=== PATIENT | female | born 2000 | race Hispanic/Latino ===

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

== ENCOUNTER 2021-05-12 20:41 | Emergency (ER) | payer OTHER ==
[2021-05-12] MEDS ORDERED: HYDROcodone/Acetaminophen 5/325 mg Tablet ONE (23:29)
[2021-05-12] MEDS ORDERED: Ciprofloxacin HCL/Dexameth Otic Drops 7.5 ml Bottle ONE (23:42)
[2021-05-12] MEDS ORDERED: Ciprofloxacin 0.2% Otic (0.25ML CONTAINER) R EAR SCH (23:45)
== END 2021-05-13 00:03 | disposition home or self-care (01) ==
LOC: ERS 20:41
DX: H60.91 Unspecified otitis externa, right ear (principal)
CPT/HCPCS: 99282

== ENCOUNTER 2024-09-18 17:48 | Emergency (ER) | payer OTHER, SELFPAY ==
[2024-09-18 18:42] LABS: Bacteria/HPF None Seen HPF (None Seen); Bilirubin Negative (Negative); Blood, Urine Negative (Negative); CAUTI Indications for Culture < 2yrs of age; Clarity Clear (Clear); Glucose, Urine (Dipstick) Normal (Negative); Ketone, Urine Negative (Negative); Leukocyte Negative Leu/uL (Negative); Nitrite Negative (Negative); Protein, Urine (Dipstick) Negative (Neg-Trace); RBC/HPF 0-3 HPF (0-3); Specific Gravity, Urine 1.015 (1.002-1.036); Squamous Epithelial 0-3 HPF (0-3); Urobilinogen Normal mg/dL (Less than 2); WBC/HPF 0-3 HPF (0-3); pH, Urine 6.5 (5.0-9.0)
[2024-09-18 18:46] LABS: Pregnancy Test - Urine (BHCG) Negative (Negative); Pregu Control Background? CLEAR/WHITE (CLR/WHITE); Pregu Control Bar Appear? YES (CONTROL BAR); Specific Gravity 1.015 (1.002-1.036); Urine Culture Reflex No No; Urine Culture Reflex Yes Yes
[2024-09-18] MEDS ORDERED: Cyclobenzaprine 10 MG TAB ONE (19:02)
[2024-09-18] MEDS ORDERED: Ketorolac Tromethamine 30 MG (1 mL) VIAL ONE (19:02)
== END 2024-09-18 19:17 | disposition home or self-care (01) ==
LOC: ERS 17:48
DX: M54.50 Low back pain, unspecified (principal); X50.0XXA Overexertion from strenuous movement or load, initial encounter
CPT/HCPCS: 81001; 81025; 87086; 96372; 99283; J1885

== ENCOUNTER 2025-05-05 15:49 | Emergency (ER) | payer SELFPAY ==
[2025-05-05] MEDS ORDERED: Ketorolac Tromethamine 30 MG (1 mL) VIAL ONE (16:32)
== END 2025-05-05 16:49 | disposition home or self-care (01) ==
LOC: ERS 15:49
DX: M54.50 Low back pain, unspecified (principal); X50.1XXA Overexertion from prolonged static or awkward postures, initial encounter
CPT/HCPCS: 96372; 99282; J1885

== ENCOUNTER 2025-06-03 19:57 | Emergency (ER) | payer SELFPAY | END 2025-06-03 20:47 | disposition home or self-care (01) | LOC: ERS 19:57 | DX: H60.91 Unspecified otitis externa, right ear (principal); H73.91 Unspecified disorder of tympanic membrane, right ear | CPT/HCPCS: 99282 ==